=== PATIENT | female | born 1965 | race Caucasian/White ===

== ENCOUNTER 2023-05-27 13:55 | Inpatient (IN) | payer MEDICARE, MEDICAID ==
[~2023-05-27] VITALS: Ht 162.6 cm; Wt 82.0 kg
[2023-05-27] MEDS ORDERED: GABA-1181 PO (16:02)
[2023-05-27] MEDS ORDERED: ZOLPIDEM TARTRATE 10 MG TABLET PO PRN (17:30)
[2023-05-27 18:35] VITALS: BP 131/86; PULSE 80; RESP 18; TEMP 98; O2SAT 97
[2023-05-27] MEDS ORDERED: ONDANSETRON HCL 4 MG TABLET PO PRN (19:00)
[2023-05-27] MEDS ORDERED: ACETAMINOPHEN 325 MG TABLET PO PRN (19:00)
[2023-05-27] MEDS ORDERED: ALBUTEROL SULFATE HFA 90 MCG/PUFF 8 GM INHALER IH PRN (19:00)
[2023-05-27] MEDS ORDERED: DOCUSATE SODIUM 100 MG CAPSULE PO PRN (19:00)
[2023-05-27] MEDS ORDERED: PETROLATUM,WHITE 28 GM JELLY TP PRN (19:00)
[2023-05-27] MEDS ORDERED: BACITRACIN 28 GM OINTMENT TP PRN (19:00)
[2023-05-27] MEDS ORDERED: MAG HYDROX/ALUMINUM HYD/SIMETH ES 30 ML SUSPENSION UDCUP PO PRN (19:00)
[2023-05-27] MEDS ORDERED: OMEPRAZOLE 20 MG CAPSULE PO PRN (19:00)
[2023-05-27] MEDS ORDERED: MAGNESIUM HYDROXIDE SUSPENSION 30 ML UDCUP PO PRN (19:00)
[2023-05-27] MEDS ORDERED: IBUPROFEN 600 MG TABLET PO PRN (19:00)
[2023-05-27] MEDS ORDERED: BENZOCAINE/MENTHOL LOZENGE PO PRN (19:00)
[2023-05-27] MEDS ORDERED: LOPERAMIDE HCL 2 MG CAPSULE PO PRN (19:00)
[2023-05-27] MEDS ORDERED: CloNIDine HCL 0.1 MG TABLET PO PRN (19:00)
[2023-05-27 20:08] VITALS: BP 128/85; PULSE 78; RESP 18; TEMP 97.9; O2SAT 98
[2023-05-28 08:13] VITALS: BP 122/78; PULSE 85; RESP 16; TEMP 97.6; O2SAT 95
[2023-05-28 08:46] LABS: BASOPHILS % (AUTO) 0.6 % (0.0-2.0); EOSINOPHILS % (AUTO) 0.8 % (1.0-6.0); HEMATOCRIT 45.2 % (36-46); HEMOGLOBIN 15.6 g/dL (12.0-16.0); LYMPHOCYTES # (AUTO) 2.1 K/uL (1.0-4.8); LYMPHOCYTES % (AUTO) 28.7 % (22.0-44.0); MEAN CORPUSCULAR HEMOGLOBIN 30.9 pg (26.0-34.0); MEAN CORPUSCULAR HGB CONC 34.6 G/dL (31.0-37.0); MEAN CORPUSCULAR VOLUME 90 fL (80-100); MONOCYTES # (AUTO) 0.3 K/uL (0.1-1.0); MONOCYTES % (AUTO) 4.4 % (2.0-9.0); NEUTROPHILS # (AUTO) 4.9 K/uL (1.8-7.7); NEUTROPHILS % (AUTO) 65.5 % (40.0-70.0); PLATELET COUNT (AUTO) 252 K/uL (150-450); RED BLOOD CELL COUNT(AUTO) 5.05 MIL/uL (4.00-5.20); RED CELL DISTRIBUTION WIDTH 13.3 % (11.5-14.5); WHITE BLOOD COUNT (AUTO) 7.4 K/uL (4.5-11.0)
[2023-05-28 09:08] LABS: HEMOGLOBIN A1C 5.3 % (3.8-5.6)
[2023-05-28 09:43] LABS: ALANINE AMINOTRANSFERASE 40 U/L (12-78); ALBUMIN 3.3 g/dL (3.4-5.0); ALKALINE PHOSPHATASE 92 U/L (46-116); ANION GAP 8 mmol/L (8-16); ASPARTATE AMINOTRANSFERASE 30 U/L (15-37); BILIRUBIN,TOTAL 0.3 mg/dL (0.1-1.0); CALCIUM, TOTAL 8.5 mg/dL (8.8-10.5); CARBON DIOXIDE 31 mmol/L (22-29); CHLORIDE 102 mmol/L (98-107); CHOL/HDL RATIO 2.9 (3.9-5.7); CHOLESTEROL 171 mg/dL (131-200); CREATININE 0.67 mg/dL (0.60-1.30); GLOMERULAR FILTR. RATE CALC > 60 mL/min (>60); GLUCOSE,RANDOM 120 mg/dL (70-110); HDL CHOLESTEROL 59 mg/dL (40-60); LDL CHOL (CALC.) 97 mg/dL (0-130); POTASSIUM 3.9 mmol/L (3.5-5.1); SODIUM SERUM 141 mmol/L (136-145); TOTAL PROTEIN, SERUM 8.1 g/dL (6.4-8.2); TRIGLYCERIDES 77 mg/dL (15-150); UREA NITROGEN, BLOOD 13 mg/dL (7-18)
[2023-05-28] MEDS: HALOPERIDOL 5 MG TABLET PO PRN (11:33)
[2023-05-28] MEDS: LORazepam 2 MG TABLET PO PRN (11:33)
[2023-05-28 21:43] VITALS: BP 101/69; PULSE 80; RESP 17; TEMP 97.1; O2SAT 80
[2023-05-29 08:20] VITALS: RESP 18
[2023-05-29 09:40] VITALS: BP 115/84; PULSE 89; RESP 18; TEMP 98; O2SAT 97
[2023-05-29] MEDS: LORazepam 2 MG TABLET PO PRN (09:45)
[2023-05-29] MEDS: HALOPERIDOL 5 MG TABLET PO PRN (09:45)
[2023-05-29] MEDS: GABAPENTIN 300 MG CAPSULE PO SCH ×2 (13:24→15:53)
[2023-05-30 00:02] VITALS: BP 110/77; PULSE 78; RESP 18; TEMP 97.3; O2SAT 98
[2023-05-30] MEDS: GABAPENTIN 300 MG CAPSULE PO SCH ×2 (08:31→12:46)
[2023-05-30] MEDS: LORazepam 2 MG TABLET PO PRN (09:56)
[2023-05-30] MEDS: HALOPERIDOL 5 MG TABLET PO PRN (09:56)
[2023-05-30] MEDS ORDERED: GABA600T PO (11:06)
== END 2023-05-30 13:10 | disposition home or self-care (01) | DRG 885 ==
LOC: B3A 17:17
PROVIDERS: ADMIT Psychiatry & Neurology Psychiatry; ATTEND Psychiatry & Neurology Psychiatry
DX: F31.9 Bipolar disorder, unspecified (principal); R45.851 Suicidal ideations; K59.00 Constipation, unspecified; G47.00 Insomnia, unspecified; I10 Essential (primary) hypertension; F41.9 Anxiety disorder, unspecified; F17.200 Nicotine dependence, unspecified, uncomplicated; F10.90 Alcohol use, unspecified, uncomplicated; Z79.899 Other long term (current) drug therapy
CPT/HCPCS: 80053; 80061; 83036; 84439; 84443; 85025